=== PATIENT | male | born 1955 | race Caucasian/White ===

== ENCOUNTER → 2018-04-09 | Day surgery (SDC) | payer BC ==
[2012-12-23 11:03] VITALS: BP 117/68
[~2018-04-09] MED LIST: APRISO0.375 GM PO; FLAGYL PO; GOOD SENSE ASPI81 M1 PO; LEVAQUIN 750MG750 M1 PO; MAVIK2 MG PO; PREDNISONE10 M1 PO
== END ==
LOC: MSO 10:24
DX: C01 Malignant neoplasm of base of tongue (principal); E46 Unspecified protein-calorie malnutrition; K29.80 Duodenitis without bleeding; Z79.899 Other long term (current) drug therapy; Z92.3 Personal history of irradiation; I10 Essential (primary) hypertension; I25.10 Atherosclerotic heart disease of native coronary artery without angina pectoris; E66.01 Morbid (severe) obesity due to excess calories; Z95.5 Presence of coronary angioplasty implant and graft; Z79.82 Long term (current) use of aspirin; Z79.02 Long term (current) use of antithrombotics/antiplatelets
CPT/HCPCS: 00731; B4087; J2704; J3010; J7120

== ENCOUNTER → 2022-02-18 | Outpatient (CLI) | payer BC | LOC: AMSURD 13:14 | DX: I25.10 Atherosclerotic heart disease of native coronary artery without angina pectoris (principal) ==

== ENCOUNTER → 2022-11-07 | Day surgery (SDC) | payer MEDICARE, BC | LOC: MSO 10-03 12:12 | DX: Z12.11 Encounter for screening for malignant neoplasm of colon (principal); D12.0 Benign neoplasm of cecum; K57.30 Diverticulosis of large intestine without perforation or abscess without bleeding | CPT/HCPCS: 00811; J2704; J7120 ==

== ENCOUNTER → 2023-11-10 | Outpatient (CLI) | payer MEDICARE, BC ==
[~2023-11-10] VITALS: Ht 182.9 cm; Wt 117.0 kg
== END ==
LOC: CARDREHAB 07:54
DX: I25.10 Atherosclerotic heart disease of native coronary artery without angina pectoris (principal)
CPT/HCPCS: A9500

== ENCOUNTER 2024-10-17 08:00 | Outpatient (RCR) | payer MEDICARE, BC | END 2024-10-18 | disposition home or self-care (01) | LOC: CARDREHAB | DX: Z48.812 Encounter for surgical aftercare following surgery on the circulatory system (principal); Z95.5 Presence of coronary angioplasty implant and graft; I20.89 Other forms of angina pectoris; Z79.899 Other long term (current) drug therapy ==

== ENCOUNTER 2024-10-21 07:55 | Outpatient (RCR) | payer MEDICARE, BC | END 2024-11-15 | disposition home or self-care (01) | LOC: CARDREHAB | DX: Z48.812 Encounter for surgical aftercare following surgery on the circulatory system (principal); Z95.5 Presence of coronary angioplasty implant and graft; I20.9 Angina pectoris, unspecified ==